=== PATIENT | female | born 1985 | race Caucasian/White ===

== ENCOUNTER 2024-08-25 10:16 | Outpatient (AMB) | payer BC, SELFPAY ==
--- NOTE | 2024-08-25 10:17 | AM.OFFWIN_ITS ---
Intake Vital Signs 08/25/24 10:21 Height 5 ft 6 in Weight 175 lb BMI 28.2 BP 130/70 Blood Pressure Location Lt brachial Position Sitting Pulse 78 Pulse Source Pulse Oximeter Temp 98.3 F Temp Source Oral Pulse Oximetry (%) 98 Intake Visit Reasons: [employer]\ nausea, vomits and itching Intake Note: patient present here at the walk in today with nausea, vomiting, and states shes been experiencing itchy throat Patient Tobacco Use Status: Never used Tobacco Allergies penicillin G Allergy (Mild, Verified 08/25/24 10:22) Hives Do you need a note to return to daycare/school/sports/work: Yes HPI [employer]\ nausea, vomits and itching HPI Details Patient is a 39-year-old female comes to the walk-in clinic complaining of nausea and vomiting, itchy throat, chills, and fatigue for the last 3 days. She has not tested for COVID yet. She works at the [employer]. She reports that she has anemia and recently tried eating chicken liver, but no new or suspicious foods recently, and no history of allergies to foods or other products. She reports no obvious exposure to allergens or illn ess. FORMERLY [facility], 1928–1983 Social History Patient Tobacco Use Status: Never used Tobacco Review of Systems Const All systems reviewed & are unremarkable except as noted in HPI and below Physical Exam Vital Signs: Last Vital Signs Temp 98.3 F 08/25/24 10:21 Pulse 78 08/25/24 10:21 BP 130/70 08/25/24 10:21 Pulse Ox 98 08/25/24 10:21 BMI result Body Mass Index 28.2 Results AMB Rapid Strep AMB Rapid Strep Negative Last Edit by Alexandre Morales CMA on 08/25/24 10 :33 Results Reviewed Results Reviewed: Laboratory Last Values Strep Scn Rapid Clinic Negative 08/25/24 10:33 Assessment & Plan Assessment & Plan (1) Otitis externa of both ears: Code(s): H60.93 - Unspecified otitis externa, bilateral Qualifiers: Chronicity: acute Otitis externa type: swimmer's ear Qualified Code(s): H60.333 - Swimmer's ear, bilateral Plan: Patient is a 39-year-old female who complains of Orders: Orders AMB Rapid Strep Screen Today Z13.9 - Encounter for screening, unspecified SARS-CoV2/FLU/RSV Today R09.89 - Other specified symptoms and signs involving the circulatory and respiratory systems BinaxNOW Covid-19 Ag Today J06.9 - Acute upper respiratory infection, unspecified Medications: New ciprofloxacin-hydrocortisone 0.2-1 % 3 drps otic (ears) BID 7 days 10 mL 0RF levofloxacin 500 mg PO DAILY 7 days 7 tabs 0RF Coding Level of Care Code New Pt Level 4 (84214) Diagnoses Acute swimmer's ear of both sides H60.333 Chronicity: acute Otitis externa type: swimmer's ear
[2024-08-25 10:21] VITALS: BP 130/70; PULSE 78; TEMP 36.8; O2SAT 98; BMI 28.2
== END 2024-08-25 10:42 | disposition home or self-care (01) ==
PROVIDERS: PCP Internal Medicine; Visit Provider Physician Assistant Medical
DX: Z13.9 Encounter for screening, unspecified (principal)

== ENCOUNTER 2024-08-25 10:16 | Outpatient (REF) | payer BC, SELFPAY ==
[2024-08-25 13:36] LABS: Influenza A PCR NEGATIVE (Negative); Influenza B PCR NEGATIVE (Negative); Resp Syncy Virus RNA Qual PCR NEGATIVE (Negative); SARS COV2 PCR INHOUSE NEGATIVE (Negative)
== END 2024-08-25 10:17 | disposition home or self-care (01) ==
LOC: HO.LNP 10:16
PROVIDERS: Physician Assistant Medical; PCP Internal Medicine
DX: H60.333 Swimmer's ear, bilateral (principal); J06.9 Acute upper respiratory infection, unspecified; R09.89 Other specified symptoms and signs involving the circulatory and respiratory systems
CPT/HCPCS: 0241U; 87880

== ENCOUNTER 2024-08-25 10:40 | Outpatient (REF) | payer BC, SELFPAY ==
[2024-08-25 11:05] LABS: Binax Now Covid-19 Ag Negative (Negative); Binax Performed by: HO.BONILM
[2024-08-25 11:06] LABS: Binax Internal Control QC Valid; Binax Lot number: 869104
== END 2024-08-25 10:41 | disposition home or self-care (01) ==
LOC: HO.HMGCLDS 10:40
PROVIDERS: PCP Internal Medicine; Visit Provider Physician Assistant Medical
DX: J06.9 Acute upper respiratory infection, unspecified (principal)
CPT/HCPCS: 87811